=== PATIENT | female | born 1995 | race Caucasian/White ===

== ENCOUNTER → 2023-11-25 | Outpatient (CLI) | payer MEDICAID, SELFPAY ==
[2023-11-25 12:22] LABS: ALB/GLOB Ratio 1.2 RATIO (0.9-2.4); AST(SGOT) 19 U/L (15-37); Alanine Aminotransfer ALT/SGPT 21 U/L (13-56); Albumin, Serum 4.4 g/dL (3.2-5.0); Alkaline Phosphatase 61 U/L (45-117); Anion Gap 6 (5-15); BUN 11 mg/dL (7-18); BUN/Creat Ratio 14.6 RATIO (10-20); Calcium,Total 9.4 mg/dL (8.5-10.1); Chloride 105 mmol/L (98-107); Creatinine, Serum 0.76 mg/dL (0.55-1.02); EST Glomerular Filtration Rate 97 mL/min (>60); Est Glom Filt Rate - Afr Amer 118 mL/min (>60); Globulin 3.7 g/dL (2.2-4.2); Glucose 87 mg/dL (74-106); Protein, Total 8.1 g/dL (6.4-8.2); Sodium Level 137 mmol/L (136-145)
[2023-11-25 12:53] LABS: HIV - WCH Non-Reactive (Nonreactive); Hepatitis B Surface Antigen Non-Reactive (Nonreactive); Hepatitis C Antibody Non-Reactive (Nonreactive)
== END | disposition home or self-care (01) ==
LOC: MTLAB 10:53
PROVIDERS: Referring Provider Physician Assistant; Visit Provider Physician Assistant
DX: Z11.3 Encounter for screening for infections with a predominantly sexual mode of transmission (principal); Z84.1 Family history of disorders of kidney and ureter
CPT/HCPCS: 36415; 80053; 86703; 86780; 86803; 87340

== ENCOUNTER → 2023-12-16 | Outpatient (CLI) | payer MEDICAID, SELFPAY | END | disposition home or self-care (01) | LOC: LAB 11:59 | PROVIDERS: PCP Physician Assistant; Referring Provider Physician Assistant; Visit Provider Physician Assistant | DX: Z11.3 Encounter for screening for infections with a predominantly sexual mode of transmission (principal) | CPT/HCPCS: 87491; 87591 ==

== ENCOUNTER → 2024-02-03 | Outpatient (CLI) | payer MEDICAID, SELFPAY ==
--- OUTSIDE RECORDS SUMMARY | 2024-02-03 11:53 | XMS RPT_ITS | CCD ---
Author Organization [facility] Care Team Providers Care Portable Trackman Name Role Phone ANGI MALDONADO Attending Unavailable ANGI MALDONADO Referring Unavailable Problems Problem Classification Problem Date Documented Date Episodic/Chronic Bacterial infection; unspecified site (1 source) Chlamydial infection, unspecified; Translations: [Chlamydial infection, unspecified] Onset: 01-14-2024 Episodic Immunizations and screening for infectious disease (1 source) Encounter for screening for infections with a predominantly sexual mode of transmission; Translations: [Encounter for screening for infections with a predominantly sexual mode of transmission] Onset: 01-14-2024 Episodic Other screening for suspected conditions (not mental disorders or infectious disease) (1 source) Encounter for screening for malignant neoplasm of cervix; Translations: [Encounter for screening for malignant neoplasm of cervix] Onset: 01-14-2024 Episodic Results Test Name Value Interpretation Reference Range Facil ity GC AND CHLAMYDIA AMPLIFIED P ROBEon 01-14-2024 GC AND CHLAMYDIA AMPLIFIED PROBE GC AMPLIFIED PA Negative Negative CHLAMYDIA, DNA PROBE Negative Negative Normal Negative [facility] Comment on above: Performed By: #### [id number] #### GREGORY [address] [place] [address] HIV ANTIBODY - [facility] HIV-1 AND HIV-2 ANTIBODIES Non-Reactive Normal Nonreactive [facility] Comment on above: Result Comment: No d etectable HIV-1p24 Antigen or HIV-1/HIV2 antibodies. If recent HIV exposure is suspected or reported, conduct HIV-1 AMY or request a new specimen and repeat the algorithm according to CDC guidance, available at: http://www.cdc.gov/hiv/guidelines Guidelines and Recommendations HIV/AIDS CDC These guidelines are intended for clinicians, public health professionals, program managers in clinical and non-clinical settings, persons at risk for HIV infection, and the general public. www.cdc.gov Performed By: #### 3 [id number] #### GREGORY [address] [place] [address] [place] PATH CANDY FEEDER CASEon 01-14-2024 PATH CANDY FEEDER CASE Gynecologic Cytology Report Case: [id number] Authorizing Provider: Angi Maldonado APRN CNP Collected: 01/14/2024 1355 Ordering Location: [facility] Received: 01/14/2024 [address] [place] First Screen: Bing Emmanuel Specimen: Thin Prep Cerv/Endoc Screening, Thin Prep Cerv/Endoc Screening Encounter for gynecological examination without abnormal finding Pap smear for cervical cancer screening 01/13/2024 Satisfactory for evaluation, endocervical/transfor mation zone component present Obscuring blood Negative for intraepithelial lesion or malignancy The Pap test is a screening test with inherent false negative and false positive rates. Greater sensitivity in Pap test screening can be attained with adding HPV testing as a co-test. The Pap test has never been proven to be effective at decreasing the incidence of cervical adenocarcinoma in screened versus unscreened populations. The Pap test has been shown to have a low sensitivity for the detection of endometrial abnormalities. Diagnostic follow-up studies are needed whenever suspicious signs or symptoms are evident, regardless of Pap test screening interpretation. Screening performed at [facility] utilizing computer-assisted technology, [address] [place] [address]. All results are generated under the supervision of a pathologist. Normal [facility] Comment on above: Performed By: #### G YNCASE #### GREGORY [address] [place] [address] [place] TREPONEMAL PALLIDUM ANTIBODY on 01-14-2024 SYPHILIS TREPONEMA ANTIBODY Non-Reactive Normal [facility] Comment on above: Performed By: #### 3 [id number], [id number] #### GREGORY [address] [place] [address] [place] TRICHOMONAS AMPLIFIED PROBEo n 01-14-2024 TRICHOMONAS AMPLIFIED PROBE Negative Normal Negative [facility] Comment on above: Performed By: #### 4 [id number] #### GREGORY [address] [place] [address] [place] Encounters Encounter Date Encounter Type Care Provider Facility Start: 01-14-2024 End: 01-14-2024 ambulatory [facility] Start: 01-14-2024 Encounter for gyneco logical examination (general) (routine) without abnormal findings [facility] Payers Date Payer Category Payer Unknown [id number] Unknown [id number] Summary Purpose Family History No Family History Records Found Advance Directives No Advanced Directives Records Found Additional Source Comments INFORMATION SOURCE (unrecogn ized section and content) DATE CREATED AUTHOR 01/24/2024 [facility] FOR RECORDS PERTAINING TO PATIENTS WHO ARE OR HAVE BEEN ENROLLED IN A CHEMICAL DEPENDENCY/SUBSTANCEABUSE PROGRAM, SOME INFORMATION MAY BE OMITTED. This clinical summary was aggregated from multiple sources. Caution should be exercised in using it in the provision of clinical care. This summary normalizes information from multiple sources, and as a consequence, information in this document may materially change the coding, format and clinical context of patient data. In addition, data may be omitted in some cases. CLINICAL DECISIONS SHOULD BE BASED ON THE PRIMARY CLINICAL RECORDS. [facility]. provides no warranty or guarantee of the accuracy or completeness of information in this document.
[2024-02-03 12:19] LABS: Absolute Lymphocyte Count 1.73 X10^3/uL (0.83-4.51); Absolute Neutrophil Count 2.2 X10^3/uL (2.0-7.7); Basophil# 0.05 X10^3/uL; Basophil% 1.1 % (0-1); Eosinophil# 0.11 X10^3/uL; Eosinophils% 2.4 % (0-5); Hemoglobin 12.9 g/dL (12.0-15.0); Lymphocyte # 1.73 X10^3/ul (0.83-4.51); Lymphocyte % 38.4 % (19-41); Mean Corp Hgb Conc 33.1 g/dL (32-36); Mean Corpuscular Hgb 29.8 pg (27.0-32.0); Mean Corpuscular Volume 90.1 fL (81-99); Mean Platelet Vol. 10.2 fl (6.2-12.0); Monocyte# 0.44 X10^3/uL; Monocyte% 9.8 % (0-10); NRBC Flagged by Analyzer 0 % (0-5); Neutrophil # 2.16 X10^3/uL (2.7-7.7); Neutrophil % 48.1 % (47-70); Platelet Count 302 K/mm3 (150-450); RBC Distribution Width CV 12.3 % (11.6-14.6); Red Blood Count 4.33 M/mm3 (4.2-5.4); White Blood Count 4.5 K/mm3 (4.4-11.0)
[2024-02-03 12:57] LABS: Cholesterol 179 mg/dL (200); High Density Lipoprotein 78 mg/dL; Triglycerides 52 mg/dL; Very Low Density Lipoprotein 10 mg/dL (5-40)
== END | disposition home or self-care (01) ==
LOC: BIMLAB 10:56
PROVIDERS: PCP Internal Medicine; Referring Provider Internal Medicine; Visit Provider Internal Medicine
DX: Z00.00 Encounter for general adult medical examination without abnormal findings (principal); Z11.3 Encounter for screening for infections with a predominantly sexual mode of transmission
CPT/HCPCS: 36415; 80061; 85025; 87491; 87591